=== PATIENT | male | born 1945 | race African-American/Black ===

== ENCOUNTER 2017-12-03 13:25 | Inpatient (IN) ==
[2017-12-03] MEDS ORDERED: SODIUM CHLORIDE 0.9% 1,000 ML IV STA (16:36)
[2017-12-03 16:39] LABS: Basophils % 0.3 % (0.0-0.8); Eosinophils % 0.1 % (0.00-10.9); Hematocrit 44.3 VOL% (42.0-52.0); Hemoglobin 14.5 GM/DL (14.0-18.0); Immature Granulocytes % 0.4 %; Immature Granulocytes Absolute 0.03 #; Lymphocytes # 1.6 10*3/uL (1.4-4.0); Lymphocytes % 20.4 % (21.2-54.2); Mean Corpuscular HGB Conc 32.7 GM/DL (32-36); Mean Corpuscular Hemoglobin 29 PG (27-34); Mean Corpuscular Volume 87.2 FL (87-102); Mean Platelet Volume 11.5 FL (9.6-12.0); Monocytes # 1.6 10*3/uL (0.11-0.8); Monocytes % 20.3 % (1.7-12.7); Neutrophils # 4.6 10*3/uL (1.4-7.4); Neutrophils % 58.5 % (38.7-73.9); Platelet Count 171 T/CUMM (130-400); Red Blood Count 5.08 MC/CUMM (3.8-5.5); Red Cell Distribution Width 14.7 % (9.3-17.3); White Blood Count 7.9 T/CUMM (4-12)
[2017-12-03 17:15] LABS: Apearance,Urine CLOUDY (Clear); Bacteria,Urine Moderate /HPF (Few); Bilirubin,Urine Negative (Negative); Blood, Urine Moderate mg/dL (Negative); Glucose,Urine (UA) Negative (Negative); Ketones,Urine 20 mg/dL (Negative); Mucus,Urine Moderate /LPF (Occasional); Nitrite,Urine Negative (Negative); Protein,Urine 100 MG/DL; RBC,Urine 13 /HPF (0-4); Squamous Epithelial Cell,Urine Occasional /HPF (0-10); Urine Color Yellow (Yellow); Urine Specific Gravity 1.025 (1.001-1.035); Urine Urobilinogen < 2.0 EU/DL (0.2-1.0); WBC,Urine 334 /HPF (0-6)
[2017-12-03 17:21] LABS: Band Neutrophils 1 % (0-10); Lymphocytes 13 % (20-55); Platelet Estimate Normal; Segmented Neutrophils 70 % (50-85); Total Cells Counted 100
[2017-12-03 17:43] LABS: Alanine Aminotransferase 27 U/L (16-61); Albumin 3.9 G/DL (3.4-5.0); Alkaline Phosphatase 99 U/L (45-117); Aspartate Amino Transferase 24 U/L (0-37); Calcium 8.7 MG/DL (8.5-10.1); Total Protein 8.7 G/DL (6.4-8.3)
[2017-12-03 17:44] LABS: Amylase 46 U/L (25-115); Blood Urea Nitrogen 16 MG/DL (7-18); Glucose 90 MG/DL (74-106); Magnesium 2.1 MG/DL (1.8-2.4); Sodium 136 MMOL/L (136-145); Troponin I Only < 0.015 NG/ML (0.00-0.045)
[2017-12-03] MEDS ORDERED: LEVOFLOXACIN INJ 750 MG in PREMIX 1 EACH IV STA (18:07)
[2017-12-03] MEDS ORDERED: PENICILLIN G BENZATHINE 1,200,000 UNIT/2 ML SYRINGE IM STA (18:14)
[2017-12-03] MEDS ORDERED: LEVOFLOXACIN INJ 150 ML IV ONE (18:16)
[2017-12-03] MEDS ORDERED: PENICILLIN G BENZATHINE 1,200,000 UNIT/2 ML SYRINGE IM ONE (18:20)
[2017-12-03] MEDS ORDERED: DOCUSATE SODIUM 100 MG CAPSULE PO PRN (18:27)
[2017-12-03] MEDS ORDERED: guaiFENesin/DM ER 600-30 MG TABLET PO PRN (18:27)
[2017-12-03] MEDS ORDERED: diphenhydrAMINE CAP 25 MG CAPSULE PO PRN (18:27)
[2017-12-03] MEDS ORDERED: ACETAMINOPHEN 325 MG TABLET PO PRN ×2 (18:27)
[2017-12-03] MEDS ORDERED: PROMETHAZINE 25 MG TABLET PO PRN (18:27)
[2017-12-03] MEDS ORDERED: ONDANSETRON 4 MG/2 ML VIAL IV PRN (18:27)
[2017-12-03] MEDS ORDERED: ACETAMINOPHEN 325 MG TABLET ONE (19:01)
[2017-12-03] MEDS: SODIUM CHLORIDE 0.9% 1,000 ML IV SCH (19:10)
[2017-12-03] MEDS ORDERED: ENOXAPARIN 40 MG/0.4 ML SYRINGE SUBCUT SCH (21:00)
[2017-12-04] MEDS: SODIUM CHLORIDE 0.9% 1,000 ML IV SCH (04:34)
[2017-12-04 06:37] LABS: Basophils % 0.4 % (0.0-0.8); Eosinophils % 0.4 % (0.00-10.9); Hematocrit 39.1 VOL% (42.0-52.0); Hemoglobin 12.7 GM/DL (14.0-18.0); Immature Granulocytes % 0.2 %; Immature Granulocytes Absolute 0.01 #; Lymphocytes # 1.3 10*3/uL (1.4-4.0); Lymphocytes % 26.1 % (21.2-54.2); Mean Corpuscular HGB Conc 32.5 GM/DL (32-36); Mean Corpuscular Hemoglobin 28 PG (27-34); Mean Corpuscular Volume 87.5 FL (87-102); Mean Platelet Volume 12.4 FL (9.6-12.0); Monocytes # 1.1 10*3/uL (0.11-0.8); Monocytes % 22.4 % (1.7-12.7); Neutrophils # 2.6 10*3/uL (1.4-7.4); Neutrophils % 50.5 % (38.7-73.9); Platelet Count 158 T/CUMM (130-400); Red Blood Count 4.47 MC/CUMM (3.8-5.5); Red Cell Distribution Width 14.7 % (9.3-17.3); White Blood Count 5.1 T/CUMM (4-12)
[2017-12-04 07:33] LABS: Calcium 8.1 MG/DL (8.5-10.1); Potassium 4.2 MMOL/L (3.5-5.1); Risk Ratio 7.17
[2017-12-04 08:18] LABS: Osmolality,Calculated 278.4 MOS/KG (273-304); VLDL CHOLESTEROL 21.2 MG/DL
[2017-12-04] MEDS ORDERED: PANTOPRAZOLE 40 MG TABLET PO SCH (09:00)
[2017-12-04] MEDS ORDERED: PANTOPRAZOLE 40 MG VIAL IV SCH (09:00)
[2017-12-04 13:11] LABS: Lymphocytes 22 % (20-55); Metamyelocytes 2 %; Myelocytes 1 %; Segmented Neutrophils 60 % (50-85); Total Cells Counted 100
[2017-12-04 13:12] LABS: Platelet Estimate Adequate
[2017-12-04 13:26] VITALS: BP 168/86
[2017-12-04] MEDS ORDERED: LEVOFLOXACIN INJ 750 MG in PREMIX 1 EACH IV SCH (21:00)
== END 2017-12-04 14:55 | disposition home or self-care (01) | DRG 690 ==
LOC: N.ED 13:25 → N.EDINP 18:27 → N.5E 19:11
PROVIDERS: ADMIT Pediatrics; ATTEND Pediatrics

== ENCOUNTER 2019-03-03 14:35 | Inpatient (IN) ==
[2019-03-03] MEDS ORDERED: ONDANSETRON 4 MG/2 ML VIAL IV STA (18:21)
[2019-03-03 18:29] LABS: Basophils # 0.1 10*3/uL (0.0-0.2); Basophils % 0.4 % (0.0-0.8); Eosinophils # 0.2 10*3/uL (0.0-0.87); Eosinophils % 1.6 % (0.00-10.9); Hematocrit 39.8 VOL% (42.0-52.0); Hemoglobin 12.4 GM/DL (14.0-18.0); Immature Granulocytes % 0.8 %; Immature Granulocytes Absolute 0.09 #; Lymphocytes # 1.4 10*3/uL (1.4-4.0); Lymphocytes % 12.6 % (21.2-54.2); Mean Corpuscular HGB Conc 31.2 GM/DL (32-36); Mean Corpuscular Volume 84.7 FL (87-102); Mean Platelet Volume 10.1 FL (9.6-12.0); Monocytes % 17.6 % (1.7-12.7); Platelet Count 295 T/CUMM (130-400); White Blood Count 11.3 T/CUMM (4-12)
[2019-03-03 18:56] LABS: Calcium 8.7 MG/DL (8.5-10.1); Osmolality,Calculated 263.4 MOS/KG (273-304)
[2019-03-03 19:13] LABS: Eosinophils 2 % (0-10); Lymphocytes 10 % (20-55); Segmented Neutrophils 80 % (50-85); Total Cells Counted 100
[2019-03-03 19:14] LABS: Platelet Estimate Normal
[2019-03-03] MEDS ORDERED: VANCOMYCIN INJ 1,500 MG in SODIUM CHLORIDE 0.9% 500 ML IV STA (19:26)
[2019-03-03] MEDS ORDERED: cefTRIAXone 1,000 MG in SODIUM CHLORIDE 0.9% 100 ML IV STA (19:26)
[2019-03-03] MEDS ORDERED: VANCOMYCIN 1,000 MG VIAL ONE (20:09)
[2019-03-03] MEDS ORDERED: ACETAMINOPHEN 500 MG TABLET PO PRN (21:33)
[2019-03-03] MEDS ORDERED: GLUCAGON 1 MG VIAL IM PRN (21:33)
[2019-03-03] MEDS ORDERED: ONDANSETRON 4 MG/2 ML VIAL IV PRN (21:33)
[2019-03-03] MEDS ORDERED: DEXTROSE 50% 25 GM/50 ML VIAL IV PRN (21:33)
[2019-03-03] MEDS ORDERED: MORPHINE 4 MG/1 ML VIAL IV PRN (21:33)
[2019-03-03] MEDS: LACTATED RINGERS 1,000 ML IV SCH (22:24)
[2019-03-04] MEDS: INSULIN REGULAR 100 UNIT/ML SUBCUT SCH ×5 (01:18→23:37)
[2019-03-04] MEDS: LACTATED RINGERS 1,000 ML IV SCH ×3 (05:31→23:58)
[2019-03-04] MEDS ORDERED: LIDOCAINE 1%/EPI INJ 20 ML VIAL ONE (08:12)
[2019-03-04] MEDS ORDERED: BUPIVACAINE 0.5% 50 ML VIAL ONE (08:12)
[2019-03-04] MEDS ORDERED: cefTRIAXone 1,000 MG VIAL ONE (08:55)
[2019-03-04] MEDS ORDERED: ALBUTEROL/IPRATROPIUM 3 ML NEB RESP TX ONE (09:18)
[2019-03-04] MEDS: PANTOPRAZOLE 40 MG TABLET PO SCH (10:19)
[2019-03-04] MEDS ORDERED: DESFLURANE 1 UNIT/15 MINUTE INH ONE (14:54)
[2019-03-04] MEDS ORDERED: PROPOFOL 200 MG/20 ML VIAL IV ONE (14:54)
[2019-03-04] MEDS ORDERED: fentaNYL 100 MCG/2 ML VIAL ONE (14:54)
[2019-03-04] MEDS ORDERED: KETOROLAC 30 MG/1 ML VIAL ONE (14:55)
[2019-03-04] MEDS ORDERED: ONDANSETRON 4 MG/2 ML VIAL ONE (14:55)
[2019-03-04] MEDS ORDERED: PHENYLEPHRINE 1 MG/10 ML SYRINGE IV ONE (14:55)
[2019-03-04] MEDS ORDERED: DEXAMETHASONE 4 MG/1 ML VIAL ONE (14:55)
[2019-03-04] MEDS ORDERED: SUCCINYLCHOLINE 200 MG/10 ML VIAL ONE (14:55)
[2019-03-04] MEDS ORDERED: ROCURONIUM 100 MG/10 ML VIAL IV ONE (14:55)
[2019-03-04] MEDS ORDERED: cefTRIAXone 1,000 MG in SYRINGE 1 EACH IV SCH (20:00)
[2019-03-05] MEDS: INSULIN REGULAR 100 UNIT/ML SUBCUT SCH (06:31)
[2019-03-05] MEDS: LACTATED RINGERS 1,000 ML IV SCH (09:30)
[2019-03-05] MEDS: PANTOPRAZOLE 40 MG TABLET PO SCH (09:30)
[2019-03-05 18:31] VITALS: BP 128/75
== END 2019-03-05 17:50 | disposition home or self-care (01) | DRG 349 ==
LOC: N.ED 14:35 → N.EDINP 19:34 → N.5E 20:59
PROVIDERS: ADMIT Surgery; ATTEND Surgery